=== PATIENT | female | born 1985 | race Caucasian/White ===

== ENCOUNTER 2017-12-22 17:37 | Emergency (ER) | payer OTHER ==
[~2017-12-22] VITALS: Ht 162.6 cm; Wt 45.4 kg
[2017-12-22] MEDS ORDERED: SUBOXONE 12 MG1 EACH (19:40)
[2017-12-22] MEDS ORDERED: DIAZ2 (19:40)
[2017-12-22] MEDS ORDERED: Valium5 MG PO (20:31)
== END 2017-12-22 21:37 | disposition home or self-care (01) ==
LOC: ER 17:37
DX: F41.9 Anxiety disorder, unspecified (principal); F32.9 Major depressive disorder, single episode, unspecified; Z88.8 Allergy status to other drugs, medicaments and biological substances; Z88.1 Allergy status to other antibiotic agents; Z79.899 Other long term (current) drug therapy
CPT/HCPCS: 99283

== ENCOUNTER 2017-12-28 17:52 | Emergency (ER) | payer OTHER ==
[~2017-12-28] VITALS: Ht 162.6 cm; Wt 45.7 kg
[~2017-12-28 17:52] MED LIST: DIAZ2; SUBOXONE 12 MG1 EACH; Valium5 MG PO
[2017-12-28] MEDS ORDERED: Bactrim Ds Tab1 EACH PO (20:45)
[2017-12-28] MEDS ORDERED: Cephalexin500 MG PO (20:45)
[2017-12-28] MEDS ORDERED: IBUP800 PO (20:46)
== END 2017-12-28 20:58 | disposition home or self-care (01) ==
LOC: ER 17:52
DX: H66.92 Otitis media, unspecified, left ear (principal); L98.9 Disorder of the skin and subcutaneous tissue, unspecified; L03.313 Cellulitis of chest wall; Z88.6 Allergy status to analgesic agent; Z88.1 Allergy status to other antibiotic agents; Z88.8 Allergy status to other drugs, medicaments and biological substances; Z79.899 Other long term (current) drug therapy
CPT/HCPCS: 99283